=== PATIENT | female | born 1960 | race Caucasian/White ===

== ENCOUNTER 2017-06-04 11:38 | Emergency (ER) | payer OTHER ==
[2017-06-04 11:50] VITALS: BP 162/96
--- NOTE | 2017-06-04 12:25 | XRAY Preliminary Report ---
Exam: XR Finger(s) LT IMPRESSION: Intra-articular avulsion fracture with small displacement in the dorsal base of the middl e phalanx of fourth digit. No fracture or bone lesion right fifth digit. [facility] SITE ID: [id number]
--- NOTE | 2017-06-04 12:27 | XRAY Report ---
EXAM: Right 4th AND 5th DIGIT RADIOGRAPHY EXAM DATE: 06/04/2017 12:15 PM. CLINICAL HISTORY: 4th and 5th digit injury. COMPARISON: None. TECHNIQUE: 3 views. FINDINGS: Bones: Intra-articular avulsion fracture, fracture fragment of 2 x 4 mm, with small displacement in t he dorsal base of the middle phalanx of fourth digit visualized. No fracture or bone lesion right fi fth digit identified. Joints: Mild osteoarthritis in the visualized right hand fingers seen. No dislocation or subluxations . Soft Tissues: No radiopaque foreign body. IMPRESSION: Intra-articular avulsion fracture with small displacement in the dorsal base of the middl e phalanx of fourth digit. No fracture or bone lesion right fifth digit. [facility] Referring Provider Line: [phone] SITE ID: [id number]
--- NOTE | 2017-06-04 13:07 | ED Physician Documentation ---
History of Present Illness - Stated complaint Stated Complaint: LEFT FINGERS INJ - Chief complaint Chief Complaint: Ext Problem - History obtained from History obtained from: Patient - History of Present Illness Timing: Other (2 days ago she was helping to move a large piece of furniture and fell backwards onto her tailbone and injured her right foot and left fourth finger as well. She has severe pain in the tailbone and left fourth finger although declines pain medications on initial evaluation. The foot does not hurt anymore and she is able to walk and bear weight without issue.) Review of Systems Constitutional: denies: Fever, Chills Throat: denies: Dental pain / toothache, Sore throat Cardiac: denies: Chest pain / pressure, Palpitations Respiratory: denies: Dyspnea, Cough PD PAST MEDICAL HISTORY - Past Medical History Past Medical History: Yes Neuro: Seizure disorder Endocrine/Autoimmune: HyPOthyroidism - Past Surgical History Past Surgical History: Yes General: Appendectomy /REGIONAL PLANNER: section HEENT: Tonsil/Adenoidectomy - Present Medications Home Medications: Ambulatory Orders Medication Instructions Recorded Confirmed Carbamazepine 200 mg PO DAILY 06/04/17 06/04/17 Divalproex Sodium [Depakote] 500 mg PO DAILY 06/04/17 06/04/17 Levothyroxine Sodium [Synthroid] 25 mcg PO DAILY 06/04/17 06/04/17 - Allergies Allergies/Adverse Reactions: Allergies Allergy/AdvReac Type Severity Reaction Status Date / Time Penicillins Allergy Unknown Verified 06/04/17 11:50 - Social History Does the pt smoke?: No Smoking Status: Never smoker Does the pt drink ETOH?: Yes ETOH Use: Wine Does the pt have substance abuse?: No - Immunizations Immunizations are current?: Yes - POLST Patient has POLST: No PD ED PE NORMAL - Vitals Vital signs reviewed: Yes - General General: Alert and oriented X 3, No acute distress - Back Back: Other (No lumbar spinal tenderness but she is focally tender over the coccyx and low sacrum.) - Extremities Extremities: Other (Very swollen to the PIP of the left fourth digit with mild flexion deformity, unable to range it, normal sensation and cap refill at the tip.) - Neuro Neuro: Alert and oriented X 3, Normal speech - Psych Psych: Normal mood, Normal affect Results - Vitals Vitals: Vital Signs - 24 hr 06/04/17 11:47 Temperature 36.5 C Heart Rate 89 Respiratory 16 Rate Blood Pressure 162/96 H O2 Saturation 100 Oxygen O2 Source Room air - Rads (name of study) Right fourth finger Radiology: EMP read contemporaneously (Intra-articular avulsion fracture with a little bit of displacement at the dorsal base of the middle phalanx of the fourth digit, fifth digit is okay.) Sacrum/coccxyn Radiology: EMP read contemporaneously (nor frx) Procedures - Splint (location) Left fourth finger Splint applied by: Tech Type of splint: Metal foam finger splint Other: Patient tolerated well, No complications, Neurovascular intact PD MEDICAL DECISION MAKING - ED course ED course: The patient and family were counseled as to the diagnosis and need for follow- up. I counseled the patient with regard to signs and symptoms that would necessitate an urgent reevaluation in the emergency department. They understand they are welcome to return at any time if worse or if not improving as expected. This document was made in part using voice recognition software. While efforts are made to proofread this documents, sound alike and grammatical errors may occur. Departure - Departure Disposition: 01 Home, Self Care Clinical Impression: Finger fracture, left Qualifiers: Encounter type: initial encounter Finger: ring finger Fracture type: closed Phalanx: middle Fracture alignment: displaced Qualified Code(s): S62.625A - Displaced fracture of medial phalanx of left ring finger, initial encounter for closed fracture Back contusion Qualifiers: Encounter type: initial encounter Laterality: unspecified laterality Qualified Code(s): S20.229A - Contusion of unspecified back wall of thorax, initial encounter Condition: Good Record reviewed to determine appropriate education?: Yes Instructions: ED Fx Finger Closed Follow-Up: [facility] [Provider Group] - Within 1 week Comments: Your blood pressure was elevated today on check into the emergency department. This does not mean that you have hypertension, it is a common phenomenon to come to the emergency department and have elevated blood pressure. I recommend that she see your primary care physician within the week to have it rechecked when you are feeling better.
--- NOTE | 2017-06-04 13:57 | XRAY Preliminary Report ---
Exam: XR Sacrum/Coccyx IMPRESSION: Degenerative changes of the lumbar spine. [facility] SITE ID: [id number]
--- NOTE | 2017-06-04 13:59 | XRAY Report ---
EXAM: SACRUM AND COCCYX RADIOGRAPHY EXAM DATE: 06/04/2017 01:30 PM. HISTORY: Tailbone inj. COMPARISONS: None. TECHNIQUE: 3 views. FINDINGS: Alignment: Normal. The sacrum and coccyx are normally aligned. Bones: Normal. No fracture or bone lesion. Joints: There are degenerative changes of the visualized lumbar spine. The sacroiliac joints and visu alized hips are within normal limits. Soft Tissues: Unremarkable. IMPRESSION: Degenerative changes of the lumbar spine. [facility] Referring Provider Line: [phone] SITE ID: [id number]
== END 2017-06-04 14:38 | disposition home or self-care (01) ==
LOC: ED 11:38
DX: S62.625A Displaced fracture of middle phalanx of left ring finger, initial encounter for closed fracture (principal); S20.229A Contusion of unspecified back wall of thorax, initial encounter; W18.30XA Fall on same level, unspecified, initial encounter; Y93.89 Activity, other specified; R03.0 Elevated blood-pressure reading, without diagnosis of hypertension
CPT/HCPCS: 29130; 72220; 73140; 99283

== ENCOUNTER → 2018-07-13 | Outpatient (CLI) | payer OTHER ==
[2018-07-13 14:17] LABS: BASOPHILS % (AUTO) 0.4 %; EOSINOPHILS # (AUTO) 0.1 10^3/uL (0.0-0.7); EOSINOPHILS % (AUTO) 1.8 %; HGB - HEMOGLOBIN 13.7 g/dL (12.0-16.0); LYMPHOCYTES # (AUTO) 3.1 10^3/uL (1.5-3.5); LYMPHOCYTES % (AUTO) 59.1 %; MEAN CORPUSCULAR HEMOGLOBIN 32.9 pg (27.0-31.0); MEAN CORPUSCULAR HGB CONC 33.5 g/dL (32.0-36.0); MEAN CORPUSCULAR VOLUME 98.4 fL (81.0-99.0); MEAN PLATELET VOLUME 9.4 fL (7.9-10.8); MONOCYTES # (AUTO) 0.3 10^3/uL (0.0-1.0); MONOCYTES % (AUTO) 6.6 %; NEUTROPHILS # (AUTO) 1.7 10^3/uL (1.5-6.6); NEUTROPHILS % (AUTO) 32.1 %; PLT - PLATELET COUNT 226 10^3/uL (130-450); RED BLOOD COUNT 4.17 10^6/uL (4.20-5.40); RED CELL DISTRIBUTION WIDTH 14.5 % (12.0-15.0); WHITE BLOOD COUNT 5.2 x10^3/uL (4.8-10.8)
[2018-07-13 14:39] LABS: THYROID STIMULATING HORMONE 2.71 uIU/mL (0.34-5.60)
[2018-07-13 14:48] LABS: FOLATE 5.76 ng/mL (5.90 - >24.8)
[2018-07-13 14:55] LABS: ALBUMIN/GLOBULIN RATIO 1.7 (1.0-2.2); ALKALINE PHOSPHATASE 76 IU/L (42-121); ALT ALANINE AMINOTRANSFERASE 22 IU/L (10-60); AST ASPARTATE AMINOTRANSFERASE 25 IU/L (10-42); BILIRUBIN,TOTAL 0.4 mg/dL (0.2-1.0); BUN - BLOOD UREA NITROGEN 14 mg/dL (6-20); CALCIUM 8.7 mg/dL (8.5-10.3); CARBON DIOXIDE - CO2 30 mmol/L (21-32); CHLORIDE 98 mmol/L (101-111); CHOL/HDL RATIO 2.9 (<4.4); CHOLESTEROL 274 mg/dL; CREATININE 0.4 mg/dL (0.4-1.0); GFR - MDRD 163 (>89); GLUCOSE 84 mg/dL (70-100); HDL CHOLESTEROL 96 mg/dL; LDL CHOLESTEROL,CALCULATED 129 mg/dL; LDL/HDL RATIO 1.3 (<4.4); SODIUM 138 mmol/L (135-145); TOTAL PROTEIN 6.3 g/dL (6.7-8.2); VLDL CHOLESTEROL 49 mg/dL
== END ==
LOC: LAB.N 08:11
PROVIDERS: ATTEND Nurse Practitioner
DX: R53.83 Other fatigue (principal); R03.0 Elevated blood-pressure reading, without diagnosis of hypertension; E55.9 Vitamin D deficiency, unspecified; E03.9 Hypothyroidism, unspecified
CPT/HCPCS: 36415; 80053; 80061; 82306; 82607; 82746; 83721; 84443; 85025

== ENCOUNTER 2024-08-18 22:56 | Inpatient (IN) ==
--- NOTE | 2024-08-18 23:16 | ED Physician Documentation ---
History of Present Illness Stated complaint Stated Complaint: FALL Chief complaint Chief Complaint: Trauma Ch/Bk History obtained from History obtained from: Patient and EMS Additonal information Additional information: 64yF presents s/p fall from standing onto R ribcage, sustaining sudden onset pain worse with deep breaths. did not hit head. no AC. states she had two servings of alcohol tonight Meds/Allgy Home Medications Ambulatory Orders Medication Instructions Recorded Confirmed carbamazepine 200 mg tablet 200 mg PO 5XD 06/04/17 08/18/24 divalproex 250 mg tablet,delayed 250 mg PO QID 08/18/24 08/18/24 release oxycodone-acetaminophen 5 mg-325 1 tab PO Q4H PRN pain #20 tabs 08/19/24 mg tablet (Percocet) Allergies Allergies Allergy/AdvReac Type Severity Reaction Status Date / Time gabapentin Allergy Unknown Unknown Verified 08/18/24 23:06 Penicillins Allergy Unknown Verified 08/18/24 23:06 [facility] Medical History Medical History (Updated 08/19/24 @ 00:44 by Jolene Polanco MD) Seizure Social History Social History Smoking Status: Never smoker Relationship: Do you feel safe in your home environment?: Yes Suffered physical, verbal, emotional, or financial abuse?: No History of Abuse: No ETOH Use: Frequency: Occasional POLST Patient has POLST: No Exam Constitutional normal general appearance and no apparent distress HENMT normocephalic and head/scalp atraumatic Eyes PERRL and EOMs intact bilaterally Neck/C-Spine visual inspection normal, cervical spine nontender and cervical full ROM noted Chest R lower lateral chest wall ttp. no crepitus Respiratory breath sounds equal bilaterally, normal respiratory effort and clear to auscultation bilaterally Cardiovascular normal heart rate noted and regular rhythm noted Results Vitals Vitals: Vital Signs - 24 hr 08/18/24 22:57 08/18/24 23:42 08/18/24 23:58 Temperature 36.5 C Temperature Source Temporal Artery Scan Pulse Rate 83 79 Respiratory Rate 16 16 Blood Pressure 156/96 H 120/73 O2 Saturation 94 95 O2 Source Room air Room air Pain Intensity 3 10 4 Oxygen O2 Source Room air PD Medical Decision Making ED course ED course: 64yF p/w R rib pain s/p mechanical fall from standing. plan to f/u CT chest to evaluate for fracture. she has minimally displaced R 7,8,10,11 fracture. shared decision made to f/u outpatient surgery clinic rather than admission. 6mg IV morphine provided with improvement in pain. spirometer and RT coaching provided. Discharge Plan Discharge Patient Disposition: Home, Self Care Condition: Stable Clinical Impression: Fracture, ribs Prescriptions: New oxycodone-acetaminophen [Percocet] 5-325 mg tablet 1 tab PO Q4H PRN (Reason: pain) Qty: 20 0RF No Action carbamazepine 200 MG tablet 200 mg PO 5XD divalproex 250 mg tablet,delayed release (DR/EC) 250 mg PO QID Activity Restrictions/Additional Instructions: You were seen in the emergency department for broken lateral (side) 7th and 8th ribs and broken posterior (back) 10th and 11th ribs. Pain meds sent to pharmacy. Use your incentive spirometer at least once an hour to strengthen the lungs and prevent pneumonia. Please follow-up with surgery clinic and return to the emergency department if you have any new or worsening symptoms or other concerns. Print Language: Sudanese Patient Instructions: ED Fx Rib Stand Alone Forms: PCP List Follow-up Care: David Singer MD [Provider Admit Priv/Credential] -
--- NOTE | 2024-08-18 23:37 | XRAY Report ---
PROCEDURE: XR Chest 1V INDICATIONS: chest inj TECHNIQUE: One view of the chest was acquired. COMPARISON: None. FINDINGS: Surgical changes and devices: Surgical clips in the bilateral axilla.. Lungs and pleura: Minimal streaky opacities of the bilateral lung bases likely related to atelectasi s given slightly diminished lung volumes bilaterally. This is likely related to inspiratory effort. N o dense consolidation. No pleural effusions or pneumothorax. Mediastinum: Mediastinal contours appear normal. Heart size is normal. Bones and chest wall: No suspicious bony lesions. No displaced rib fractures visualized. Overlying soft tissues appear unremarkable. IMPRESSION: Minimal opacities of the bilateral lung bases favored to represent atelectasis given slightly diminis hed lung volumes bilaterally. This may be related to degree of inspiratory effort. Consider repeat im aging with dedicated upright PA and lateral views of the chest confirm. No acute, displaced rib fractures identified. Reviewed by: Brayan Landaverde MD on 08/18/2024 11:35 PM PST Approved by: Brayan Landaverde MD on 08/18/2024 11:35 PM PST Station ID: [id number]
[2024-08-18] MEDS: MORPHINE 2 MG/ML CARPUJECT IVP STA (23:42)
--- NOTE | 2024-08-18 23:59 | CT Report ---
PROCEDURE: CT Chest WO INDICATIONS: R lateral lower rib pain s/pfall TECHNIQUE: A CT scan of the chest was performed. Intravenous contrast media was not administered. Images were re corded and evaluated at appropriate window settings. Reformats: axial MIP of the chest, coronal and s agittal. For radiation dose reduction, the following was used: automated exposure control, adjustment of mA and/or kV according to patient size. COMPARISON: None. FINDINGS: Image quality: Diagnostic. Chest wall and lower neck: No thyroid nodule which requires sonographic follow up. No axillary or sup raclavicular adenopathy by size. Bilateral axillary surgical clips. Bilateral breast implants. Lungs and pleura: No consolidation. No pleural effusions. No pneumothorax. No suspicious pulmonary n odules which require follow up. Mediastinum: Heart size is normal. No pericardial effusion. No large vessel abnormality. No mediastin al adenopathy by size criteria. Bones: Mildly displaced fractures of the right posterior 10th and 11th ribs. Minimally displaced frac tures of the right lateral seventh and eighth ribs.. Degenerative changes of the spine. Upper Abdomen: Hepatic Steatosis . IMPRESSION: Mild gaseous fractures of the right posterior 10th and 11th ribs and minimally C6 fractures of the ri ght lateral seventh and eighth ribs. No associated pneumothorax. Reviewed by: Cachorro Rodriguez MD on 08/18/2024 11:57 PM PST Approved by: Cachorro Rodriguez MD on 08/18/2024 11:57 PM PST Station ID: [id number]
[2024-08-19] MEDS: HYDROmorphone 0.5 MG/0.5 ML SYRINGE IVP STA ×2 (01:28→04:24)
--- NOTE | 2024-08-19 01:40 | PROVIDER PROGRESS NOTE ---
Progress Note Progress Note Progress Note: General Surgery Holding Note 64 year old female with multiple, minimally displaced right rib fractures. Will be admitted for multimodality pain control. Labs pending. H&P to follow. Anthony Chen MD, FACS
[2024-08-19 01:51] LABS: BASOPHILS % (AUTO) 0.2 %; EOSINOPHILS % (AUTO) 0.4 %; HCT - HEMATOCRIT 41.3 % (37.0-47.0); HGB - HEMOGLOBIN 13.6 g/dL (12.0-16.0); LYMPHOCYTES # (AUTO) 1.6 10^3/uL (1.5-3.5); MEAN CORPUSCULAR HEMOGLOBIN 33.7 pg (27.0-31.0); MEAN CORPUSCULAR HGB CONC 32.9 g/dL (32.0-36.0); MEAN CORPUSCULAR VOLUME 102.2 fL (81.0-99.0); MEAN PLATELET VOLUME 10.1 fL (7.9-10.8); MONOCYTES # (AUTO) 0.8 10^3/uL (0.0-1.0); MONOCYTES % (AUTO) 8.2 %; NEUTROPHILS # (AUTO) 7.6 10^3/uL (1.5-6.6); NEUTROPHILS % (AUTO) 74.7 %; PLT - PLATELET COUNT 180 10^3/uL (130-450); RED BLOOD COUNT 4.04 10^6/uL (4.20-5.40); RED CELL DISTRIBUTION WIDTH 13.2 % (12.0-15.0); WHITE BLOOD COUNT 10.2 x10^3/uL (4.8-10.8)
[2024-08-19 02:09] LABS: ALBUMIN 4.7 g/dL (3.2-5.5); ALBUMIN/GLOBULIN RATIO 2.1 (1.0-2.2); ALKALINE PHOSPHATASE 96 IU/L (42-121); ALT ALANINE AMINOTRANSFERASE 46 IU/L (10-60); AST ASPARTATE AMINOTRANSFERASE 36 IU/L (10-42); BILIRUBIN,TOTAL 0.4 mg/dL (0.2-1.0); BUN - BLOOD UREA NITROGEN 11 mg/dL (6-20); CALCIUM 9.4 mg/dL (8.5-10.3); CARBON DIOXIDE - CO2 28 mmol/L (21-32); CHLORIDE 98 mmol/L (101-111); CREATININE 0.5 mg/dL (0.6-1.3); ETOH - ETHANOL < 10.0 mg/dL; GFR - MDRD 123 (>89); GLUCOSE 99 mg/dL (74-104); LIPASE 39 U/L (11-82); POTASSIUM 4.2 mmol/L (3.5-4.5); SODIUM 138 mmol/L (135-145); TOTAL PROTEIN 6.9 g/dL (6.4-8.9)
[2024-08-19] MEDS ORDERED: HYDROmorphone 0.5 MG/0.5 ML SYRINGE IVP PRN ×2 (04:07→08:26)
[2024-08-19] MEDS: oxyCODONE 5 MG TABLET PO STA (06:09)
[2024-08-19] MEDS: LIDOCAINE PATCH 4% TOP STA (07:57)
--- NOTE | 2024-08-19 08:01 | HISTORY & PHYSICAL EXAMINATION ---
Chief Complaint Chief Complaint Chief Complaint: Right chest wall pain History of Present Illness Admitted From Admitted From:: ED History Obtained From History obtained from: Patient History of Present Illness HPI Comment/Other: 64 year old female who tripped on home carpet and struck right posterior chest on side table at 2245 last evening. She experienced immediate pain and difficulty breathing. She arranged to have friends manage her hospice-care mother, then came to the ED for evaluation. She was found to have 4 non- displaced right rib fractures and I was contacted to manage her admission at 0130 this morning. Transfer orders were placed and this morning I found her still in the ED because of no bed availability. This morning she still has right posterior chest pain but is less SOB. She has been receiving narcotics in the ED but since she has not been officially admitted, the rib fracture multimodality pain strategy I ordered has not yet been initiated. Meds/Allgy Home Medications Ambulatory Orders Medication Instructions Recorded Confirmed carbamazepine 200 mg tablet 200 mg PO 5XD 06/04/17 08/18/24 divalproex 250 mg tablet,delayed 250 mg PO QID 08/18/24 08/18/24 release oxycodone-acetaminophen 5 mg-325 1 tab PO Q4H PRN pain #20 tabs 08/19/24 mg tablet (Percocet) Allergies Allergies Allergy/AdvReac Type Severity Reaction Status Date / Time gabapentin Allergy Unknown Unknown Verified 08/18/24 23:06 Penicillins Allergy Unknown Verified 08/18/24 23:06 REPLACED BY [facility] Medical History Medical History (Updated 08/19/24 @ 07:56 by Coleman Chen MD) Acute appendicitis Breast cancer Sciatica Seizure Surgical History Surgical History (Updated 08/19/24 @ 07:48 by Coleman Chen MD) Previous back surgery H/O breast reconstruction H/O tubal ligation History of appendectomy S/P mastectomy, bilateral Family History Family History (Updated 08/19/24 @ 07:52 by Coleman Chen MD) Son Cancer Brother Melanoma Mother Lymphoma Social History Social History Smoking Status: Never smoker Relationship: Do you feel safe in your home environment?: Yes Suffered physical, verbal, emotional, or financial abuse?: No History of Abuse: No ETOH Use: Frequency: Occasional POLST Patient has POLST: No POLST Status: Full Code Review of Systems Right posterior chest pain. Mild SOB with inspiration Prior Level of Functionality: Independent. 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 No flail. No ecchymosis, No crepitus Respiratory breath sounds equal bilaterally, clear to auscultation bilaterally, no wheezes and no retractions IS to 1,500 ml Cardiovascular normal heart rate noted, regular rhythm noted and no murmur Gastrointestinal abdomen normal to inspection, abdomen soft to palpation and nontender to palpation Genitourinary no CVA tenderness Extremities normal to inspection, normal to palpation and full ROM Neurology no sensory deficits noted Psychiatry mental status grossly normal, oriented x3, thought process normal, cooperative and affect normal Skin skin color normal, no rash and no lesions Conclusion/Plan Problem List (1) Fracture, ribs: Qualifiers: Encounter type: initial encounter Fracture type: closed [facility] Qualified Code(s): S22.41XA - Multiple fractures of ribs, right side, initial encounter for closed fracture Plan 1) Admit to Observation status 2) Multimodality pain control (Tylenol, NSAID, [place], IV Dilaudid prn; Lidocaine patch - avoid gabapentin due to drug allergy) 3) IS 6 x per hour 4) Regular diet 5) Ambulate 6) Discharge to home when pain under good control and she feels capable of managing her mother's needs at home Lab Results 08/19/24 01:44 08/19/24 01:44
[2024-08-19] MEDS ORDERED: SODIUM CHLORIDE FLUSH 0.9% 10 ML SYRINGE IVP PRN (08:26)
[2024-08-19] MEDS: ACETAMINOPHEN 500 MG TABLET PO SCH (09:16)
[2024-08-19] MEDS: IBUPROFEN 600 MG TABLET PO SCH (09:17)
[2024-08-19] MEDS: SODIUM CHLORIDE FLUSH 0.9% 10 ML SYRINGE IVP SCH (09:17)
[2024-08-19] MEDS: LACTATED RINGERS 1,000 ML IV SCH (09:17)
--- NOTE | 2024-08-19 10:03 | PHARMACY PROGRESS NOTE ---
Best Possible Medication History Admit Date and Time: 08/19/24 [id number] Home Medications Medication Instructions Recorded Confirmed Type divalproex 250 mg tablet,delayed 250 mg PO QID 08/18/24 08/18/24 History release carbamazepine 200 mg 200 mg PO 1100,1500,1900 08/19/24 08/19/24 History tablet,extended release,12 hr carbamazepine 200 mg 400 mg PO DAILY 08/19/24 08/19/24 History tablet,extended release,12 hr oxycodone-acetaminophen 5 mg-325 1 tab PO Q4H PRN pain #20 tabs 08/19/24 Rx mg tablet (Percocet) Processed by: Pharmacy Medications reviewed in ED?: Yes Medication History completed: Yes Patient Interview: Completed Secondary Source(s): Prescription bottles, Pharmacy records and Insurance records [facility] Statement: As the person ultimately responsible for medication therapy, providers are able to order a medication from an existing home medication list in [facility] via the "Reconcile Routine" prior to Confirmation of that medication by security support analyst. Such practice is discouraged except when the physician, in their clinical judgment, deems that a medical need exists for a medication without regard to previous use.
[2024-08-19] MEDS: DIVALPROEX DR 250 MG TABLET PO SCH ×2 (10:49→13:10)
[2024-08-19] MEDS: carBAMazepine 200 MG TABLET PO SCH (10:49)
[2024-08-19] MEDS: oxyCODONE 5 MG TABLET PO PRN (13:10)
[2024-08-19] MEDS: carBAMazepine ER 200 MG TABLET PO SCH (13:10)
--- NOTE | 2024-08-19 17:40 | PROVIDER PROGRESS NOTE ---
Progress Note Progress Note Progress Note: General Surgery Progress Note S: Nesha feels better but still has, as expected, right chest wall discomfort with movement. She feels that she is breathing better and has no cough. She is ambulatory and tolerating a diet. Friends and family are watching her Mom at home O: VSS, transient HTN; Good inspiratory effort A: Multiple right rib fractures - good pain control P: Continue as ordered; Monitor blood pressure for potential need for intermediate frame tender treatment Coleman Chen MD, FACS General Surgery Service
[2024-08-19] MEDS: HYDROmorphone 1 MG/ML CARPUJECT IVP PRN (21:48)
[2024-08-20] MEDS: carBAMazepine ER 200 MG TABLET PO SCH (06:35)
--- NOTE | 2024-08-20 08:40 | PROVIDER PROGRESS NOTE ---
Progress Note Progress Note Progress Note: General Surgery Progress Note Hospital Day # 2 - GLF with 4 left rib fractures Code Status: Full ASSESSMENT: 1) Still with considerable right chest wall pain with movement. PLAN: 1) Continue admission for multimodality pain control which seems to be working but will require more time before discharge to home can be recommended 2) Re-evaluate for discharge later today <><><><><> PERTINENT INTERVAL ISSUES: None S: Movement to bathroom last night aggravated her right chest wall pain. The pain medication works but she is too uncomfortable to go home this morning OBJECTIVE: I/O: I/O 1,892/1,692 VS: BP 121/61; P 69; RR 16; T 36.7 EXAMINATION: MENTAL STATUS: AAO; Complains of right chest wall pain. No SOB NECK: No crepitus, lymphadenopathy, or thyromegaly LUNGS: Clear to auscultation without wheezing; No use of accessory muscles to breathe; Able to breathe deeply without much discomfort or any SOB CARDIOVASCULAR: Heart-NSR without murmurs; LABS: None today CULTURES: N/A IMAGING: None today ANTIMICROBIALS: N/A PAIN CONTROL: Dilaudid IV prn, Oxycodone PO prn, Ibuprofen, Acetaminophen VTEP: Chemical: None Mechanical: SCD Coleman Chen MD, FACS General Surgery Service
[2024-08-20] MEDS: HYDROmorphone 0.5 MG/0.5 ML SYRINGE IVP PRN (11:44)
[2024-08-20] MEDS: ONDANSETRON 4 MG/2 ML VIAL IVP PRN (12:12)
--- NOTE | 2024-08-21 07:21 | PROVIDER PROGRESS NOTE ---
Progress Note Progress Note Progress Note: General Surgery Progress Note S: Still with right posterior chest wall pain. No SOB; No bowel movement yet O: VSS, afen; Lungs clear; Heart NSR; Right posterior chest wall with palpable tenderness but no crepitus and no rib movement A: Right chest wall pain due to 4 rib fractures - pain management on-going; Constipation P: Miralax; Ambulate; Possible discharge later today. Anthony Chen MD, FACS General Surgery Service
--- NOTE | 2024-08-21 07:51 | PROVIDER PROGRESS NOTE ---
Progress Note Progress Note Progress Note: General Surgery Progress Note S: Continues to complain of right posterior chest wall pain. Constipated. Ambulatory O: VSS afeb; Lungs clear; Heart NSR; Tender right posterior ribs but no rib movement and no crepitus A: Right posterior chest wall pain due to fracture of 4 ribs. Continues to require multimodality pain control; Constipation P: Ambulate; Continue meds as ordered; Start Miralax and Colace; Perhaps discharge later today. Anthony Chen MD, FACS General Surgery Service
[2024-08-21] MEDS: DOCUSATE SODIUM 100 MG CAPSULE PO SCH (09:30)
[2024-08-21] MEDS: polyethylene glycoL 3350 17 GM PACKET PO PRN (10:50)
--- NOTE | 2024-08-21 16:22 | PROVIDER PROGRESS NOTE ---
Progress Note Progress Note Progress Note: General Surgery Progress Note S: Still with right posterior chest wall pain. The Dilaudid does not seem to last long enough for her to get comfortable. in addition, she has worse pain when she is pulled to a sitting position using her right arm. This may be aggravating the right posterior rib fractures. O: VSS, afeb. Lungs clear; mRight posterior rib pain to palpation A: Multiple right posterior rib fractures with associated pain P: Discontinue Dilaudid, Increase Oxycodone to 7.5 mg PO Q4H prn, Start Robaxin (muscle relaxant), Instructed the nursing staff to avoid pulling her upright using her right arm (use shoulder). Coleman Chen MD, FACS General Surgery Service
[2024-08-21] MEDS: methocarbamoL 500 MG TABLET PO SCH (17:20)
[2024-08-21] MEDS: oxyCODONE 5 MG TABLET PO PRN (17:21)
--- NOTE | 2024-08-22 09:15 | PROVIDER PROGRESS NOTE ---
Progress Note Progress Note Progress Note: General Surgery Progress Note S: Patient has better right rib pain control with the increased dose of oxycodone and the initiation of Robaxin. Still no BM O: VSS, afeb; Lungs clear; Heart NSR; Right chest wall with mild discomfort with palpation. No rib movement. No subcutaneous crepitus A: Multiple right rib fractures due to a GLF. pain under better control. Patient is ready for discharge Plan: Discharge to home on multimodality pain control (Tylenol; Ibuprofen; Oxycodone; Robaxin) Follow-up with her PCP in 10-14 days Follow-up Surgery Clinic as needed Coleman Chen MD, FACS General Surgery Service
[2024-08-22 13:27] VITALS: O2SAT 96
== END 2024-08-22 14:27 | disposition home or self-care (01) | DRG 948 ==
LOC: MS3 22:56 → ED 22:56 → MS3 08-19 08:48
PROVIDERS: ADMIT Surgery; ATTEND Surgery
DX: G89.11 Acute pain due to trauma; K59.00 Constipation, unspecified; S22.41XA Multiple fractures of ribs, right side, initial encounter for closed fracture; W01.190A Fall on same level from slipping, tripping and stumbling with subsequent striking against furniture, initial encounter; Y92.009 Unspecified place in unspecified non-institutional (private) residence as the place of occurrence of the external cause; I95.9 Hypotension, unspecified